=== PATIENT | female | born 1980 | race Caucasian/White ===

== ENCOUNTER 2016-07-22 20:34 | Emergency (ER) | payer MEDICAID ==
[~2016-07-22] VITALS: Ht 167.6 cm; Wt 63.0 kg
[~2016-07-22 20:34] MED LIST: EYE DROPS; KEFLEX
--- NOTE | 2016-07-22 21:13 | NUR ---
mse completed, motrin administered. pt then d/c'd home/aci and rx x 1 giveen. pt ambulated w/o diff/took all belongings.
[2016-07-22] MEDS ORDERED: IBUPROFEN 600 MG TABLET PO ONE (21:15)
[2016-07-22 21:16] VITALS: BP 115/71
[2016-07-22] MEDS ORDERED: IBUPROFEN 600 MG TABLET ONE (21:17)
== END 2016-07-22 21:24 | disposition home or self-care (01) ==
LOC: ER 20:34
DX: M26.622 Arthralgia of left temporomandibular joint (principal)
CPT/HCPCS: A4663

== ENCOUNTER 2016-07-27 22:27 | Emergency (ER) | payer MEDICAID ==
[~2016-07-27] VITALS: Ht 167.6 cm; Wt 62.8 kg
--- NOTE | 2016-07-27 22:42 | NUR ---
Pt c/o sore throat, congestion, and productive cough for 3 days. Denies dyspnea, CP, no other complaints, no distress noted.
[2016-07-27] MEDS: DEXAMETHASONE 4 MG TABLET PO ONE (22:47)
--- NOTE | 2016-07-27 22:51 | NUR ---
Gave pt d/c instructions, verbalized understanding.
[2016-07-27] MEDS ORDERED: DEXAMETHASONE 4 MG TABLET ONE (22:56)
== END 2016-07-27 22:53 | disposition home or self-care (01) ==
LOC: ER 22:29
DX: J02.9 Acute pharyngitis, unspecified (principal)
CPT/HCPCS: A4663; J8540

== ENCOUNTER 2017-11-15 00:54 | Inpatient (IN) | payer MEDICAID ==
[~2017-11-15] VITALS: Ht 160 cm; Wt 67.1 kg
[2017-11-15] MEDS ORDERED: IV NS 1000 ML 1,000 ML IV ONE (02:15)
[2017-11-15 02:24] LABS: BASOPHILS # (AUTO) 0.1 K/uL (0.0-8.0); BASOPHILS % (AUTO) 0.6 % (0.0-2.0); EOSINOPHILS # (AUTO) 0.3 K/uL (0.0-0.7); EOSINOPHILS % (AUTO) 2.6 % (0.0-7.0); HEMATOCRIT 24.3 % (31.2-41.9); LYMPHOCYTES # (AUTO) 2.1 K/uL (20.0-40.0); LYMPHOCYTES % (AUTO) 19.6 % (20.5-51.5); MEAN CORPUSCULAR HEMOGLOBIN 26.6 uug (24.7-32.8); MEAN CORPUSCULAR HGB CONC 33 g/dL (32.3-35.6); MEAN CORPUSCULAR VOLUME 80.7 fL (75.5-95.3); MONOCYTES # (AUTO) 0.7 K/uL (2.0-10.0); NEUTROPHILS # (AUTO) 7.8 K/uL (1.8-8.9); NEUTROPHILS % (AUTO) 71.2 % (38.5-71.5); PLATELET COUNT (AUTO) 411 K/uL (179-408); RED BLOOD CELL COUNT(AUTO) 3.01 MIL/uL (3.63-4.92); WHITE BLOOD COUNT (AUTO) 10.9 K/uL (3.8-11.8)
[2017-11-15] MEDS ORDERED: PANTOPRAZOLE SODIUM IV 40 MG in IV DEXTROSE 5% 100 ML IV ONE (02:33)
[2017-11-15] MEDS ORDERED: HYDROCODONE/APAP 5-325MG TABLET PO ONE (02:33)
[2017-11-15] MEDS ORDERED: ONDANSETRON IV *ER 4 MG/2 ML VIAL IV ONE (02:33)
[2017-11-15] MEDS ORDERED: PIPERACILLIN SODIUM/TAZOBACTAM 3.375 G in IV DEXTROSE 5% 50 ML IV ONE (02:34)
[2017-11-15 02:44] LABS: CREATININE 0.8 mg/dL (0.6-1.3); POTASSIUM 3.8 mmol/L (3.5-5.1)
[2017-11-15] MEDS ORDERED: VANCOMYCIN IV 1,000 MG in IV DEXTROSE 5% 250 ML IV ONE (02:45)
[2017-11-15] MEDS ORDERED: IV NS 1000 ML 1,000 ML IV PRN ×2 (02:45→12:00)
[2017-11-15] MEDS ORDERED: HYDROCODONE/APAP 5-325MG TABLET ONE (02:46)
[2017-11-15] MEDS ORDERED: PANTOPRAZOLE SODIUM 40 MG VIAL ONE (02:47)
[2017-11-15] MEDS ORDERED: ONDANSETRON 4 MG/2 ML VIAL ONE (02:47)
[2017-11-15 02:51] LABS: BILIRUBIN,TOTAL 0.3 mg/dL (0.2-1.0); TOTAL PROTEIN, SERUM 5.8 g/dL (6.4-8.2)
[2017-11-15] MEDS ORDERED: IOHEXOL 300MG/ML 100 ML INFUS..BTL ONE (03:15)
[2017-11-15] MEDS ORDERED: NORMAL SALINE FLUSH 10 ML DISP.SYRIN ONE ×2 (03:15→04:49)
[2017-11-15] MEDS ORDERED: SWABABLE VALVE TRANSFER SET EA MC ONE ×2 (03:15→04:49)
[2017-11-15] MEDS ORDERED: IV NORMAL SALINE 250 ML IV ONE ×2 (03:15→04:49)
[2017-11-15] MEDS ORDERED: PIPERACILLIN/TAZOBACTAM/D5W 50 ML IV ONE (04:05)
[2017-11-15] MEDS ORDERED: IOHEXOL 350 100 ML INFUS..BTL ONE (04:49)
[2017-11-15] MEDS ORDERED: MAGNESIUM HYDROXIDE 30 ML LIQUID UDC PO PRN (05:00)
[2017-11-15] MEDS ORDERED: ONDANSETRON 4 MG/2 ML VIAL IV PRN (05:00)
[2017-11-15] MEDS ORDERED: Z GUARD REMEDY PASTE 57 GM TUBE TOP PRN (05:00)
[2017-11-15] MEDS ORDERED: ACETAMINOPHEN 325 MG TABLET PO PRN (05:00)
[2017-11-15 05:09] LABS: *OCCULT BLOOD STOOL NEGATIVE (NEGATIVE)
[2017-11-15] MEDS ORDERED: ENOXAPARIN SODIUM 80 MG/0.8 ML DISP.SYRIN SQ ONE (05:20)
[2017-11-15] MEDS ORDERED: VANCOMYCIN IV 200 ML ONE (06:28)
[2017-11-15] MEDS ORDERED: CLINDAMYCIN PHOSPHATE IV 600 MG in IV DEXTROSE 5% 100 ML IV SCH (09:00)
[2017-11-15] MEDS: HYDROCODONE/APAP 5-325MG TABLET PO PRN ×2 (09:54→14:29)
[2017-11-15 11:45] VITALS: BP 116/69
[2017-11-15] MEDS ORDERED: NEOMY/BACITRAC/POLYMI OINT 28.35 GM TUBE TOP SCH (13:15)
[2017-11-15] MEDS ORDERED: NEOMY/BACITRAC/POLYMI OINT 28.35 GM TUBE TOP PRN (13:45)
[2017-11-15 13:51] LABS: *BILIRUBIN,URIN NEGATIVE (NEGATIVE); *BLOOD, URINE 3+ (NEGATIVE); *CLARITY,URINE SLIGHTLY CLOUDY (CLEAR); *COLOR,URINE YELLOW (YELLOW); *KETONES,URINE NEGATIVE (NEGATIVE); *PROTEIN,URINE NEGATIVE (NEGATIVE); *UROBILINOGEN,URINE 0.2 E.U./dl (NORMAL); LEUKOCYTE ESTERASE ,URINE NEGATIVE (NEGATIVE); NITRITE, URINE NEGATIVE (NEGATIVE); UGLUCOSE NEGATIVE (NEGATIVE)
[2017-11-15 13:54] LABS: BACTERIA,URINE FEW /HPF (NONE SEEN); RBC,URINE 80-100 /HPF (0-3); SQUAMOUS EPITHELIAL CELL,UR FEW /HPF (NONE SEEN)
[2017-11-15] MEDS ORDERED: ENOXAPARIN SODIUM 80 MG/0.8 ML DISP.SYRIN SQ SCH (21:00)
== END 2017-11-15 15:30 | disposition short-term general hospital (02) | DRG 134 ==
LOC: ER 01:01 → TELE 06:00
PROVIDERS: ADMIT Family Medicine; ATTEND Internal Medicine
DX: I26.99 Other pulmonary embolism without acute cor pulmonale (principal); I96 Gangrene, not elsewhere classified; L76.82 Other postprocedural complications of skin and subcutaneous tissue; E46 Unspecified protein-calorie malnutrition; D62 Acute posthemorrhagic anemia; E83.51 Hypocalcemia; L03.311 Cellulitis of abdominal wall; I82.432 Acute embolism and thrombosis of left popliteal vein; Z98.890 Other specified postprocedural states; R74.8 Abnormal levels of other serum enzymes; R79.89 Other specified abnormal findings of blood chemistry; R74.0 Nonspecific elevation of levels of transaminase and lactic acid dehydrogenase [LDH]; Z68.26 Body mass index [BMI] 26.0-26.9, adult; T70.29XA Other effects of high altitude, initial encounter; X58.XXXA Exposure to other specified factors, initial encounter; T86.821 Skin graft (allograft) (autograft) failure
CPT/HCPCS: 36415; 71275; 84703; 85025; 85610; 85730; 86850; 86900; 86901; 86920; 87040; 87070; 87077; 93005; A4663; C9113; J1650; J2405; J2543; J3370; J3490; J7030; J7050; J7060; Q9967

== ENCOUNTER 2017-12-12 13:06 | Emergency (ER) | payer MEDICAID ==
[~2017-12-12] VITALS: Ht 160 cm; Wt 62.1 kg
[2017-12-12 13:42] LABS: BASOPHILS # (AUTO) 0.1 K/uL (0.0-8.0); BASOPHILS % (AUTO) 0.9 % (0.0-2.0); EOSINOPHILS # (AUTO) 0.1 K/uL (0.0-0.7); EOSINOPHILS % (AUTO) 1.1 % (0.0-7.0); HEMOGLOBIN 12.5 g/dL (10.9-14.3); LYMPHOCYTES # (AUTO) 2.3 K/uL (20.0-40.0); LYMPHOCYTES % (AUTO) 37.8 % (20.5-51.5); MEAN CORPUSCULAR HEMOGLOBIN 26.8 uug (24.7-32.8); MEAN CORPUSCULAR HGB CONC 33 g/dL (32.3-35.6); MEAN CORPUSCULAR VOLUME 81.4 fL (75.5-95.3); MONOCYTES # (AUTO) 0.4 K/uL (2.0-10.0); NEUTROPHILS # (AUTO) 3.2 K/uL (1.8-8.9); NEUTROPHILS % (AUTO) 54.2 % (38.5-71.5); PLATELET COUNT (AUTO) 248 K/uL (179-408); RED BLOOD CELL COUNT(AUTO) 4.66 MIL/uL (3.63-4.92)
[2017-12-12] MEDS ORDERED: APIX5TAB PO (13:44)
[2017-12-12] MEDS ORDERED: FERR325T28 PO (13:44)
[2017-12-12 13:51] LABS: CREATININE 0.7 mg/dL (0.6-1.3); POTASSIUM 3.6 mmol/L (3.5-5.1)
--- NOTE | 2017-12-12 14:28 | NUR ---
PT WAS EVALUATED BY DR DIAL. PT WAS D/C TO HOME. D/C INSTRUCTIONS GIVEN TO THE PT. PT DENIES PAIN. NO SOB. NO N/V.
[2017-12-12 14:31] VITALS: BP 118/70
== END 2017-12-12 14:32 | disposition home or self-care (01) ==
LOC: ER 13:06
DX: I26.99 Other pulmonary embolism without acute cor pulmonale (principal); R07.89 Other chest pain
CPT/HCPCS: 36415; 71045; 80048; 84484; 85025; 85730; 93005; 99285; A4663; 70030-TC

== ENCOUNTER 2018-11-05 21:28 | Emergency (ER) | payer MEDICAID ==
[~2018-11-05] VITALS: Ht 154.9 cm; Wt 64.9 kg
[~2018-11-05 21:28] MED LIST changes: +APIX5TAB PO; -EYE DROPS; +FERR325T28 PO; -KEFLEX
[2018-11-05] MEDS ORDERED: IV NORMAL SALINE 1000 ML BAG IV ONE (22:00)
[2018-11-05] MEDS ORDERED: KETOROLAC TROMETHAMINE 15 MG INJ IVP ONE (22:00)
[2018-11-05] MEDS ORDERED: KETOROLAC TROMETHAMINE 15 MG INJ ONE (22:11)
[2018-11-05 22:35] LABS: BASOPHILS % (AUTO) 0.3 % (0.0-2.0); EOSINOPHILS % (AUTO) 0.2 % (0.0-7.0); HEMATOCRIT 40.7 % (31.2-41.9); HEMOGLOBIN 13.5 g/dL (10.9-14.3); LYMPHOCYTES # (AUTO) 1.4 K/uL (20.0-40.0); LYMPHOCYTES % (AUTO) 11.2 % (20.5-51.5); MEAN CORPUSCULAR HEMOGLOBIN 26.3 uug (24.7-32.8); MEAN CORPUSCULAR HGB CONC 33 g/dL (32.3-35.6); MEAN CORPUSCULAR VOLUME 79.4 fL (75.5-95.3); MONOCYTES # (AUTO) 0.9 K/uL (2.0-10.0); NEUTROPHILS # (AUTO) 10.1 K/uL (1.8-8.9); NEUTROPHILS % (AUTO) 81.3 % (38.5-71.5); PLATELET COUNT (AUTO) 251 K/uL (179-408); RED BLOOD CELL COUNT(AUTO) 5.13 MIL/uL (3.63-4.92); WHITE BLOOD COUNT (AUTO) 12.5 K/uL (3.8-11.8)
[2018-11-05 22:42] LABS: BILIRUBIN,DIRECT 0.1 mg/dL (0.0-0.2); BILIRUBIN,TOTAL 0.3 mg/dL (0.2-1.0); CREATININE 0.8 mg/dL (0.6-1.3); POTASSIUM 3.8 mmol/L (3.5-5.1); TOTAL PROTEIN, SERUM 7.9 g/dL (6.4-8.2)
[2018-11-05 23:09] LABS: *MONOTEST NEGATIVE (NEGATIVE)
[2018-11-06] MEDS ORDERED: ACETAMINOPHEN ES 500 MG TABLET ONE
[2018-11-06] MEDS ORDERED: ACETAMINOPHEN 325 MG TABLET PO ONE
[2018-11-06] MEDS ORDERED: CEphaleXIN 500 MG CAPSULE PO ONE (00:30)
[2018-11-06] MEDS ORDERED: CEphaleXIN 500 MG CAPSULE ONE (00:35)
--- NOTE | 2018-11-06 00:37 | NUR ---
IV removed. Catheter intact and site benign. Pressure and 4x4 gauze applied to site. No bleeding noted.
--- NOTE | 2018-11-06 00:42 | NUR ---
Patient discharged to home in stable conditon. Written and verbal after care instructions given. Patient verbalizes understanding of instructions. Pt walked out of ER in stable gait. Pt states she feels so much better. No acute distress noted. Vital signs stable. Respirations even + unlabored.
[2018-11-06 00:43] VITALS: BP 120/64
== END 2018-11-06 00:44 | disposition home or self-care (01) ==
LOC: ER 21:28
DX: J02.0 Streptococcal pharyngitis (principal); Z79.899 Other long term (current) drug therapy
CPT/HCPCS: 36415; 71045; 80048; 80076; 83605; 84484; 85025; 85730; 86308; 86403; 87040 ×2; 87400; 93005; 96374; 99284; J1885; 70030-TC; A4663; A9150; J0290; J7030

== ENCOUNTER 2018-11-07 22:05 | Emergency (ER) | payer MEDICAID ==
[~2018-11-07] VITALS: Ht 154.9 cm; Wt 64.4 kg
--- NOTE | 2018-11-07 22:15 | NUR ---
Patient ambulated with stable gait. Speech is clear, speaks in complete sentences. No neuro deficits noted. A/Ox4. Patient came for c/o sore throat. Patient seen here yesterday and was sent home with Keflex oral atb therapy. Respiratory even and unlabored no cough no sob. No cardiovascular distress noted.
[2018-11-07] MEDS ORDERED: PENICILLIN G BENZATHINE 2.4 MMU/4 ML DISP.SYRIN IM ONE ×2 (22:30→22:31)
[2018-11-07 22:41] VITALS: BP 115/81
--- NOTE | 2018-11-07 22:41 | NUR ---
Patient discharged to home in stable conditon. Written and verbal after care instructions given. Patient verbalizes understanding of instructions. Patient ambulated with stable gait.
== END 2018-11-07 22:42 | disposition home or self-care (01) ==
LOC: ER 22:10
DX: J02.9 Acute pharyngitis, unspecified (principal); R11.2 Nausea with vomiting, unspecified; Z79.899 Other long term (current) drug therapy
CPT/HCPCS: A4663

== ENCOUNTER 2018-12-08 18:27 | Emergency (ER) | payer MEDICAID ==
[~2018-12-08] VITALS: Ht 157.5 cm; Wt 64.9 kg
--- NOTE | 2018-12-08 19:07 | NUR ---
Dr Chapa at the bedside for MSE.
--- NOTE | 2018-12-08 19:30 | NUR ---
PT REFUSES TO BE TESTED FOR . ER AWARE.
[2018-12-08] MEDS: KETOROLAC TROMETHAMINE 30 MG INJ IM ONE (19:34)
[2018-12-08] MEDS ORDERED: KETOROLAC TROMETHAMINE 30 MG INJ ONE (19:34)
--- NOTE | 2018-12-08 19:34 | NUR ---
Patient discharged to home in stable conditon. Written and verbal after care instructions given. Patient verbalizes understanding of instructions. ALL BELONGINGS W/ PT. PT SELF-AMBULATED W/O DIFFICULTY.
[2018-12-08 19:36] VITALS: BP 116/72
== END 2018-12-08 19:37 | disposition home or self-care (01) ==
LOC: ER 18:27
DX: R51 Headache (principal); R21 Rash and other nonspecific skin eruption; Z79.899 Other long term (current) drug therapy
CPT/HCPCS: 96372; 99283; J1885; A4663

== ENCOUNTER 2020-04-28 17:12 | Emergency (ER) | payer MEDICAID ==
[~2020-04-28] VITALS: Ht 157.5 cm; Wt 63.5 kg
--- NOTE | 2020-04-28 18:18 | NUR ---
Arms sling on. Patient discharged to home in stable condition with brisk steady gait. Written and verbal after care instructions given to patient. Patient verbalizes understanding & compliance of instructions. Stressed follow up with primary doctor & orthopedist or return to ER for worsening s/s.
== END 2020-04-28 18:18 | disposition home or self-care (01) ==
LOC: ER 17:13
DX: S69.91XA Unspecified injury of right wrist, hand and finger(s), initial encounter (principal); S49.91XA Unspecified injury of right shoulder and upper arm, initial encounter; W01.0XXA Fall on same level from slipping, tripping and stumbling without subsequent striking against object, initial encounter; Y92.89 Other specified places as the place of occurrence of the external cause; Z86.718 Personal history of other venous thrombosis and embolism; Z79.01 Long term (current) use of anticoagulants
CPT/HCPCS: 73030; 73080; 73090; 73110; A4663

== ENCOUNTER 2021-11-24 21:21 | Emergency (ER) | payer SELFPAY ==
--- NOTE | 2021-11-24 23:00 | NUR ---
PATIENT WAS CALLED TO BE TRIAGED BUT WAS NOT PRESENT IN THE WAITING ROOM. PATIENT WAS JUST CALLED AT THIS TIME DUE TO SHORT STAFFING AND NO BEDS AVAILABLE IN THE ER.
--- NOTE | 2021-11-24 23:45 | NUR ---
Patient was called to be triaged butg was not present in the waiting room. Patient was not triaged or seen by ERMD.
== END 2021-11-25 | disposition left against medical advice (07) ==
LOC: ER 21:21
DX: Z53.21 Procedure and treatment not carried out due to patient leaving prior to being seen by health care provider (principal)

== ENCOUNTER 2022-12-12 22:04 | Emergency (ER) | payer MEDICAID ==
[~2022-12-12] VITALS: Ht 160 cm; Wt 61.2 kg
[2022-12-12] MEDS ORDERED: IBUPROFEN 600 MG TABLET PO ONE (23:30)
[2022-12-12] MEDS ORDERED: IBUPROFEN 600 MG TABLET ONE (23:39)
[2022-12-13 00:37] VITALS: BP 125/75; TEMP 98.4; O2SAT 98
== END 2022-12-13 00:38 | disposition home or self-care (01) ==
LOC: ER 22:08
DX: J02.8 Acute pharyngitis due to other specified organisms (principal); B97.89 Other viral agents as the cause of diseases classified elsewhere; J06.9 Acute upper respiratory infection, unspecified; G43.909 Migraine, unspecified, not intractable, without status migrainosus; Z79.899 Other long term (current) drug therapy; Z20.822 Contact with and (suspected) exposure to COVID-19
CPT/HCPCS: 86403; A4663